=== PATIENT | male | born 1990 | race Caucasian/White ===

== ENCOUNTER 2019-10-26 01:59 | Emergency (ER) | payer SELFPAY ==
[2019-10-26 02:02] VITALS: BP 123/81; PULSE 75; RESP 16; TEMP 36.9; O2SAT 98; BMI 19.9
--- NOTE | 2019-10-26 02:35 | ED.VIS.GEN ---
History of Present Illness Chief Complaint: Fever Informant: Patient Onset: Days Context: Gradual Onset Timing: Continuous Narrative: Patient is a 29-year-old male with no significant past medical history presenting with concern for coronavirus infection. Patient states he has a coworker he will tested positive for coronavirus this week. He has had fever of 101 and was sent home from work yesterday. In addition he is having fatigue and generalized malaise. He states he is a chronic cough from smoking states the cough has not changed. Has been alternating Tylenol and DayQuil with normal relief of his symptoms. Patient presented with his roommate as they both work in the same place and had the same symptoms. Patient is, that he is had some issues with depression with denies any homicidal suicidal ideations. He is working with his insurance to find a counselor/psychologist. Past Medical History - Allergies and Home Meds Allergies/Adverse Reactions: Allergies Penicillins Allergy (Verified 10/26/19 02:02) Vomiting Primary Care Physician: [facility] [GROUP OF PHYSICIANS] - Past Medical History: None Surgical History: noncontributory Lives: Roommate Smoking Status: Current every day smoker Review of Systems General: Reports: Chills, Fever, Malaise. Denies: Sweats Eyes: Denies: Visual changes - bilaterally, Diplopia ENT: Denies: Rhinorrhea, Sore throat Cardiovascular: Denies: Chest pain, Palpitations Respiratory: Reports: Cough. Denies: Dyspnea, Sputum, Dyspnea on exertion Gastrointestinal: Denies: Abdominal pain, Nausea, Vomiting, Diarrhea, Melena, Hematochezia Genitourinary: Denies: Dysuria, Hematuria, Frequency Musculoskeletal: Denies: Back pain, Extremity Pain Skin: Denies: Rash, Wounds Neurological: Denies: Headache, Weakness, Numbness Physical Exam Vital Signs/Narrative: Vital Signs Temp Pulse Resp BP Pulse Ox 10/26/19 02:02 98.4 F 75 16 123/81 H 98 Inital Vital Signs reviewed: Yes General: Well nourished, Well developed, No Acute Distress Head: Normocephalic, Atraumatic Eyes: Perrl, EOMI ENT: Moist mucous membranes, No rhinorrhea, TM's clear. Negative for: Nasal congestion Neck: Supple, Nontender, No lymphadenopathy, No JVD Cardiovascular: Regular rate, Regular rhythm, No murmurs Respiratory: No distress, CTA bilaterally, Chest nontender Abdomen: Soft, Nontender, Nondistended, Normal bowel sounds Back: Nontender, Normal Inspection Extremities: Nontender, No edema Skin: Normal color, No rash Neurological: Alert, Oriented x3, Cranial nerves II-XII grossly intact, Normal Strength, Normal Sensation Psychological: Normal affect, Normal Mood Diagnostic/Tx/Re-eval - Medical Decision Making Evaluated for concern of coronavirus infection after exposure. He has some mild flulike symptoms including fever and fatigue. He is otherwise well-appearing. He is clear breath sounds. Nothing a chest x-ray is indicated. He has normal vital signs. He will be swabbed for COVID. He is given return precautions. He is given isolation precautions. And depression screening questions patient does report that he does have some depression but denies any homicidal suicidal ideations. Patient is given information for the counseling center. Patient is counseled on signs and symptoms requiring return to the emergency room. Patient verbalizes agreement and understand this plan. Patient discharged home in stable and improved condition. ED Disposition - Plan for ED Patient: Disposition: Home or Assisted Living Diagnosis: Fever with exposure to COVID-19 virus Instructions: ED Fever Control (Adult) Referrals: Counseling,Center [GROUP OF PHYSICIANS] - Additional Instructions: Alternate Tylenol and ibuprofen as needed for fever and symptom control.
[2019-10-26 03:48] VITALS: RESP 18
== END 2019-10-26 03:48 | disposition home or self-care (01) ==
LOC: ED 03:10
PROVIDERS: Emergency Provider Emergency Medicine
DX: R50.9 Fever, unspecified (principal); Z20.828 Contact with and (suspected) exposure to other viral communicable diseases; F17.200 Nicotine dependence, unspecified, uncomplicated
CPT/HCPCS: 87635; 94799; 99282; U0003

== ENCOUNTER 2019-12-01 03:33 | Emergency (ER) | payer OTHER, SELFPAY ==
[2019-12-01 03:33] VITALS: BP 126/78; PULSE 64; RESP 16; TEMP 36.4; O2SAT 100; BMI 17.6
--- NOTE | 2019-12-01 03:41 | ED.DCSUM_ITS ---
- ER Visit Summary Date of Service: 12/01/19 Chief Complaint: [Dental pain] History of Present Illness: The patient is a 29 M [presents to the emergency department complaint of dental pain for the last 3 days. Patient states that he has had trouble with his teeth off and on over the last 2 to 3 years. Patient states that he recently got insurance and knows that he needs to follow-up with a dentist. He denies any fever. He denies any dental trauma. Patient states he had to leave work because of the amount of pain that he was having. He has no medical history otherwise.] Physical Examination: [HEENT-PERRLA, EOMI. Cranial nerves II through XII grossly intact. TMs clear. Mucous membranes moist. No adenopathy. Dentition- patient has broken and carried left upper molar that is tender to palpation. There is no gingival erythema or abscess noted. No facial cellulitis noted. Patient also has diffuse poor dentition with multiple caries noted. Cardiovascular-regular rate and rhythm without murmur or ectopy Lungs-clear to auscultation, chest wall stable without crepitus or subcu emphysema Abdomen-normoactive bowel sounds, soft, nontender, no rebound or rigidity, no peritoneal signs. Extremities-intact ?4, normal range of motion, normal pulses, atraumatic] Test Results: [None indicated] Emergency Department Course and Treatment: Patient given dose of clindamycin p.o.] Treatment Plan: [Patient will be treated with clindamycin and a few [place] for pain. Patient given referral to dentist in the area.] Disposition: [Discharged home in stable condition] Impression: [Dental pain secondary to dental carry] This note was generated with [employer] dictation software. It may contain incorrect words, spelling, and punctuation that were not noted in review of the chart prior to signing ED Disposition - Plan for ED Patient: Referrals: Care Physician,No Primary [Primary Care Provider] -
--- NOTE | 2019-12-01 03:43 | DCINST.ED_ITS ---
ED Disposition - Plan for ED Patient: Instructions: ED Tooth Pain Prescriptions: Clindamycin HCl [Cleocin] 300 mg PO Q6H #40 cap Prescription Printed Hydrocodone Bitart/Apap 5-325 [[place] 5MG-325MG] 1 tab PO Q4H PRN PRN 2 Days #10 tab PRN Reason: Pain Prescription Printed Referrals: Care Physician,No Primary [Primary Care Provider] -
[2019-12-01] MEDS: Clindamycin HCl 150 MG Capsule 300 MG PO (03:49)
== END 2019-12-01 04:39 | disposition home or self-care (01) ==
PROVIDERS: Emergency Provider Emergency Medicine
DX: K02.9 Dental caries, unspecified (principal); Z72.0 Tobacco use
CPT/HCPCS: 99283

== ENCOUNTER 2019-12-19 22:25 | Emergency (ER) | payer OTHER, SELFPAY ==
[2019-12-19 22:26] VITALS: BP 128/84; PULSE 78; RESP 14; TEMP 36.6; O2SAT 100; BMI 17.6
--- NOTE | 2019-12-19 23:22 | ED.VIS.GEN ---
History of Present Illness Chief Complaint: Dental Informant: Patient Onset: Weeks Context: Gradual Onset Current Severity: Moderate Maximum Severity: Moderate Narrative: Patient presents to the ED with continued dental pain. He was seen here on November 30 and given a prescription for clindamycin as he does have a penicillin allergy. He states the medication made him nauseated he was only able to take about half the course. Because he works third shift he was not able to get in to see a dentist. He returned tonight secondary to continued dental pain and nausea. He is taking ibuprofen and Tylenol regularly. Past Medical History - Allergies and Home Meds Allergies/Adverse Reactions: Allergies Penicillins Allergy (Verified 12/19/19 22:26) Vomiting Primary Care Physician: Care Physician,No Primary [Primary Care Provider] - Prior records reviewed: Yes Surgical History: noncontributory Smoking Status: Current every day smoker Review of Systems General: Denies: Chills, Fever Eyes: Denies: Visual changes - bilaterally ENT: Denies: Bilateral ear pain Cardiovascular: Denies: Chest pain Respiratory: Denies: Dyspnea Gastrointestinal: Reports: Nausea Musculoskeletal: Denies: Swelling, Extremity Pain Skin: Denies: Rash Neurological: Denies: Headache Hematologic: Denies: Easy bruising, Easy bleeding Allergy: Denies: Uticaria Physical Exam Vital Signs/Narrative: Vital Signs Temp Pulse Resp BP Pulse Ox 12/19/19 22:26 97.8 F 78 14 128/84 H 100 Inital Vital Signs reviewed: Yes General: Well nourished, Well developed Head: Normocephalic ENT: Moist mucous membranes, - - Multiple dental caries noted. Left maxillary molars are decayed to the gumline with some gum erosion. Right mandibular second molar is decayed on the lateral surface. No facial edema or erythema noted. Posterior pharynx examination is normal. Patient is tolerating secretions well and has a strong voice. Cardiovascular: Regular rate, Regular rhythm Respiratory: No distress Abdomen: Soft, Nontender Skin: Normal color Neurological: Alert, Oriented x3 Psychological: Normal affect Diagnostic/Tx/Re-eval - Medical Decision Making Patient will be given a prescription for Zofran to help control his nausea. He will be given a new prescription for clindamycin as well as tramadol that he can use to take for pain before he goes to bed at night. He is given a new dental referral list. ED Disposition - Plan for ED Patient: Disposition: Home or Assisted Living Diagnosis: Odontalgia Instructions: ED Tooth Pain Prescriptions: Clindamycin [Cleocin] 300 mg PO 4X/DAY #80 capsule traMADol [Ultram] 50 mg PO Q4H PRN PRN 3 Days #20 tablet PRN Reason: Pain Ondansetron [Zofran Odt] 4 mg PO Q8H PRN PRN #20 tablet PRN Reason: Nausea Additional Instructions: Dental list provided.
[2019-12-19] MEDS: traMADol 50 MG Tablet PO (23:29)
[2019-12-19] MEDS: Ondansetron ODT 4 MG Tablet PO (23:29)
== END 2019-12-19 23:50 | disposition home or self-care (01) ==
LOC: ED 23:28
PROVIDERS: Emergency Provider Emergency Medicine
DX: K08.89 Other specified disorders of teeth and supporting structures (principal); U07.1 COVID-19; F17.200 Nicotine dependence, unspecified, uncomplicated
CPT/HCPCS: 87635; 99282; U0003

== ENCOUNTER 2020-02-18 09:43 | Emergency (ER) | payer SELFPAY ==
[2020-02-18 09:44] VITALS: BP 142/80; PULSE 86; RESP 15; TEMP 36.7; O2SAT 100; BMI 17.7
--- NOTE | 2020-02-18 09:56 | RAD_ITS ---
STUDY: X-RAY - RIGHT HAND REASON FOR EXAM: Male, 30 years old. Punched a wall last night -- pain to thumb and index finger TECHNIQUE: view(s) of the hand. COMPARISON: None. FINDINGS: Normal radiocarpal articulation. Normal distal radioulnar joint. Normal visualized carpal bones. Normal carpal articulations Normal carpometacarpal articulation of the thumb. Normal second through fifth carpometacarpal joints. Normal metacarpi. Normal metacarpophalangeal joint of the thumb. Normal interphalangeal joint of the thumb. Normal proximal and distal phalanges of the thumb. Normal metacarpophalangeal joints of the second through fifth fingers. Normal proximal and distal interphalangeal joints of the second through fifth fingers. Normal phalanges of the second through fifth fingers. The soft tissue structures are unremarkable. RAD/Hand Min 3 Views IMPRESSION: Normal x-ray examination of the hand. Electronically Signed: Lars Garber MD at 10:15 EST Tel , Service support ,
--- NOTE | 2020-02-18 09:56 | ED.DCSUM_ITS ---
History of Present Illness Chief Complaint: Upper Extremity Injury Informant: Patient Onset: Yesterday Maximum Severity: Mild Narrative: Patient is left-handed. He presents with right hand pain that occurred yesterday when he was angry punched a wall has persistent discomfort to the hand in a diffuse fashion and presents for evaluation, no prior history of injury to that extremity no other complaints unable to work today because of the hand pain Past Medical History - Allergies and Home Meds Allergies/Adverse Reactions: Allergies Penicillins Allergy (Verified 12/19/19 22:26) Vomiting Primary Care Physician: Care Physician,No Primary [Primary Care Provider] - Past Medical History: None Surgical History: noncontributory Smoking Status: Current every day smoker Review of Systems General: Denies: Chills, Fever, Sweats Eyes: Denies: Visual changes - bilaterally, Diplopia ENT: Denies: Rhinorrhea, Sore throat Cardiovascular: Denies: Chest pain, Palpitations Respiratory: Denies: Dyspnea, Cough, Dyspnea on exertion Gastrointestinal: Denies: Abdominal pain, Nausea, Vomiting, Diarrhea, Melena, Hematochezia Genitourinary: Denies: Dysuria, Hematuria, Frequency Musculoskeletal: Reports: Extremity Pain. Denies: Back pain Skin: Denies: Rash, Wounds Neurological: Denies: Headache, Weakness, Numbness Physical Exam Vital Signs/Narrative: Vital Signs Temp Pulse Resp BP Pulse Ox 02/18/20 09:44 98.0 F 86 15 142/80 H 100 General: Well nourished, Well developed, No Acute Distress Head: Normocephalic, Atraumatic Eyes: Perrl, EOMI ENT: Moist mucous membranes, No rhinorrhea Neck: Supple, Nontender Cardiovascular: Regular rate, Regular rhythm, No murmurs Respiratory: No distress, CTA bilaterally, Chest nontender Abdomen: Soft, Nontender, Nondistended, Normal bowel sounds Back: Nontender, Normal Inspection Extremities: Nontender, No edema, - - He has some abrasions to the knuckles of the right hand he has full range of motion of the digits he has some mild thumb discomfort no snuffbox, sensations intact skin is intact neurovascular function is all normal Skin: Normal color, No rash Neurological: Alert, Oriented x3, Cranial nerves II-XII grossly intact, Normal Strength, Normal Sensation Psychological: Normal affect, Normal Mood Diagnostic/Tx/Re-eval - Medical Decision Making At this time x-rays pain management Right hand x-ray multiple view to my review show no acute abnormalities soft tissue bones within normal range, radiology report concurs see that report, I explained the above the patient the concept of an occult injury he is comfo rtable with discharge home he needs a day off work [id number] pain management and to follow-up with on-call orthopedics if not improved Home stable Final impression right hand contusion ED Disposition - Plan for ED Patient: Diagnosis: Right hand contusion Instructions: ED Contusion, Upper Extremity Referrals: Care Physician,No Primary [Primary Care Provider] - Da Billy MD [STAFF PHYSICIAN] -
[2020-02-18] MEDS: Naproxen 500 MG Tablet PO (10:13)
[2020-02-18 11:07] VITALS: PULSE 74; O2SAT 99
== END 2020-02-18 11:08 | disposition home or self-care (01) ==
LOC: ED 10:39
PROVIDERS: Emergency Provider Emergency Medicine
DX: S60.221A Contusion of right hand, initial encounter (principal); F17.200 Nicotine dependence, unspecified, uncomplicated; W22.09XA Striking against other stationary object, initial encounter; Y93.89 Activity, other specified; Y92.89 Other specified places as the place of occurrence of the external cause; Y99.8 Other external cause status
CPT/HCPCS: 73130; 99283

== ENCOUNTER 2020-04-23 19:41 | Emergency (ER) | payer SELFPAY ==
[2020-04-23 19:42] VITALS: BP 119/74; PULSE 88; RESP 16; TEMP 36.3; O2SAT 99; BMI 18.2
--- NOTE | 2020-04-23 19:50 | ED.VIS.GEN ---
History of Present Illness Chief Complaint: Nausea/Vomiting Informant: Patient Onset: Days - Set of illness April 19 Context: Sudden Onset Timing: Continuous Quality: Nausea, vomiting, fever and chills Location: GI Current Severity: Mild Maximum Severity: Severe Worsened by: Nothing Relieved by: Nothing Associated Symptoms: Constitutional symptoms Narrative: She is a 30-year-old male with no sniffing past medical history presents to the emerged part because of illness that started on April 19. He reports nausea and vomiting. Fever with chills. He reports numerous episodes of vomiting with frequent bowel movements but not watery diarrhea. He denies blood in emesis or black or maroon-colored stool. He states he feels better. He needs a note to return to work. Patient does admit he is a heavy smoker and occasional late will have alcoholic beverages. He presently has mild headache. Eyes visual, ocular auditory symptoms. He denies upper respiratory symptoms. He denies contact with anyone ill or with Covid. He denies loss of taste or smell. Prior similar symptoms: No Recent Illness/Hospitalization: No - Past Medical History (1) No significant past medical history Status: Acute Past Medical History - Allergies and Home Meds Allergies/Adverse Reactions: Allergies Penicillins Allergy (Verified 12/19/19 22:26) Vomiting Primary Care Physician: Care Physician,No Primary [Primary Care Provider] - Prior records reviewed: No Past Medical History: None Surgical History: noncontributory Lives: Alone Smoking Status: Current every day smoker Alcohol: Occasional Drugs: None Review of Systems General: Reports: Chills, Fever, Malaise, Subjective. Denies: Sweats Eyes: Denies: Visual changes - bilaterally ENT: Denies: Rhinorrhea, Sore throat Cardiovascular: Denies: Chest pain, Palpitations Respiratory: Denies: Dyspnea, Cough, Dyspnea on exertion Gastrointestinal: Reports: Abdominal pain, Nausea, Vomiting. Denies: Diarrhea, Constipation, Melena, Hematochezia Genitourinary: Denies: Dysuria, Hematuria, Frequency Musculoskeletal: Denies: Myalgias, Arthralgias, Neck pain, Back pain, Swelling, Extremity Pain, -, - Neurological: Reports: Headache, Weakness. Denies: Parasthesia, Numbness Psych: Denies: Depression, Anxiety Endocrine: Denies: Polyuria, Polydipsia Physical Exam Vital Signs/Narrative: Vital Signs Temp Pulse Resp BP Pulse Ox 04/23/20 19:42 97.4 F L 88 16 119/74 99 Inital Vital Signs reviewed: Yes General: Well nourished, Well developed, No Acute Distress Head: Normocephalic, Atraumatic Eyes: Perrl, EOMI. Negative for: Pale conjunctiva ENT: Moist mucous membranes Cardiovascular: Regular rate, Regular rhythm Respiratory: No distress Abdomen: Soft Rectal: Deferred Skin: Normal color, No rash Neurological: Alert, Oriented x3, Cranial nerves II-XII grossly intact, Normal Strength, Normal Sensation, Normal Gait Psychological: Normal affect Diagnostic/Tx/Re-eval - Medical Decision Making Presents with viral infection with nausea, vomiting and increased bowel movements. He presents for note so he may return to work. Since patient is in no distress with normal vital signs and unremarkable exam he was given note to return to work. ED Disposition - Plan for ED Patient: Disposition: Home or Assisted Living Diagnosis: Nausea and vomiting in adult patient, Fever and chills Instructions: ED Vomiting and Diarrhea ... Referrals: Care Physician,No Primary [Primary Care Provider] - Surendra Do MD [STAFF PHYSICIAN] - As Needed
[2020-04-23 20:17] VITALS: PULSE 84; RESP 14; O2SAT 99
== END 2020-04-23 20:17 | disposition home or self-care (01) ==
LOC: ED 20:02
PROVIDERS: Emergency Provider Emergency Medicine
DX: R11.2 Nausea with vomiting, unspecified (principal); R50.9 Fever, unspecified; F17.200 Nicotine dependence, unspecified, uncomplicated
CPT/HCPCS: 99282

== ENCOUNTER 2022-04-16 15:58 | Emergency (ER) | payer OTHER, SELFPAY ==
[2022-04-16 15:59] VITALS: BP 129/96; PULSE 107; RESP 16; TEMP 36.4; O2SAT 98; BMI 17.9
--- NOTE | 2022-04-16 16:29 | ED.VIS.LOWEX ---
HPI History of Present Illness Chief Complaint: Lower Extremity Injury Narrative Narrative: 32-year-old male presenting with right fifth toe pain and third toe pain. There is erythema on knees which has developed. 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 He also states he picks at his toenails. He picks at his fingernails as well. Does not have any systemic signs or symptoms. No trauma that he knows of. No drainage. He states that his fifth toe is tender but his third toe is not. PFSH PFSH Home Medications clindamycin HCl 150 mg capsule 450 mg PO TID 7 days #63 caps 04/16/22 [Rx Last Taken Unknown] naproxen 500 mg tablet (Naprosyn) 500 mg PO BID PRN pain #20 tabs 04/16/22 [Rx Last Taken Unknown] Allergy/AdvReac Type Severity Reaction Status Date / Time Penicillins Allergy Vomiting Verified 12/19/19 22:26 Social History Smoking Status: Never smoker ROS ROS ED Constitutional Constitutional ED: Denies chills, fever(s) or sweats Eyes Eyes: Denies blurry vision or change in vision ENT ENT ED: Denies ear pain or sore throat Cardiovascular Cardiovascular: Denies chest pain, palpitations or racing heartbeat Respiratory/Chest Respiratory/Chest: Denies cough, dyspnea or sputum Gastrointestinal Gastrointestinal: Denies abdominal pain, constipation, diarrhea, nausea or vomiting Genitourinary Genitourinary ED: Denies dysuria, hematuria or urinary frequency Musculoskeletal Musculoskeletal: Denies arthralgias, myalgias or neck pain Integumentary Denies abscess, Abrasions or rash Neurologic Neurologic: Denies headache(s), paresthesias or weakness Psychiatric Psychiatric: Denies anxiety, depression, suicidal ideation or suicidal thoughts Endocrine Endocrinology: Denies polydipsia or polyuria EXAM Physical Exam Const Vital Signs: 04/16/22 15:59 Temperature 97.5 F L Temperature Source Temporal Pulse Rate 107 H Respiratory Rate 16 Blood Pressure 129/96 H Blood Pressure Mean 107 Pulse Ox 98 Oxygen Delivery Method Room Air Positive well nourished General Appearance ED: NAD HEENT Reports moist mucous membranes normocephalic Eyes PERRL Chest Wall inspection of chest normal and palpation of chest normal Resp normal respiratory effort and no retractions Cardio regular rate and regular rhythm GI non-tender Back/Spine no CVA tenderness Neuro oriented x3 and CN's II-XII intact bilaterally Sensorium / Orientation: alert Motor Exam: strength 5/5 throughout and general weakness Psych mental status grossly normal Skin Skin Narrative: Erythema and tenderness to the right fifth toe. The right third toe has some erythema but is not tender. No drainage or fluctuance. No deformity. Lesions: no lesions MDM MDM MDM Narrative Medical decision making narrative: Patient's presentation most consistent with cellulitis of the foot mostly on the right fifth toe but the third toe is also erythematous. There is only pain in the fifth toe. No fluctuance or deformity. I do not think he needs imaging. I will start him on antibiotics and give Naprosyn for pain. Also give podiatry follow-up. Patient was counseled to soak his foot is much as he can. Impression: 1. Right fifth toe cellulitis Discharge Plan Triage Chief Complaint: Lower Extremity Injury ED Provider: Johny Grover Dx/Rx/DC Orders Instructions: ED Cellulitis Prescriptions: New clindamycin HCl 150 mg capsule 450 mg PO TID 7 Days Qty: 63 0RF naproxen [Naprosyn] 500 mg tablet 500 mg PO BID PRN (Reason: pain) Qty: 20 0RF Primary Care Provider: Care Physician,No Primary Referrals: Ulysses Gentile DPM [Med Staff - Active Staff] - 2 Days for wound check Care Physician,No Primary [Primary Care Provider] - Disposition Disposition: Home, Self Care
[2022-04-16] MEDS: Clindamycin HCl 150 MG Capsule 450 MG PO (16:40)
[2022-04-16 16:44] VITALS: PULSE 97; RESP 16; O2SAT 99
== END 2022-04-16 16:44 | disposition home or self-care (01) ==
PROVIDERS: Emergency Provider Student in an Organized Health Care Education/Training Program; Visit Provider Student in an Organized Health Care Education/Training Program
DX: L03.031 Cellulitis of right toe (principal)
CPT/HCPCS: 99283

== ENCOUNTER 2022-04-24 20:27 | Emergency (ER) | payer OTHER, SELFPAY ==
[2022-04-24 20:28] VITALS: BP 120/95; PULSE 90; RESP 18; TEMP 36.2; BMI 17.4
[2022-04-24] MEDS: Ibuprofen 600 MG Tablet PO (21:29)
--- NOTE | 2022-04-24 21:34 | EX.ED.DYSGE1 ---
HPI History of Present Illness Chief Complaint: Cellulitis Narrative Narrative: Patient is a 32-year-old male presenting with recurrent/worsening right fifth toe pain. Patient was seen in the ER 9 days ago and diagnosed with cellulitis of his toe. He started on clindamycin. He states he took the entire course of antibiotics and finished it yesterday. He note notes his symptoms had pretty much resolved. He is to continue to do warm soaks. He states 2 days before he was seen initially in the ER the nail of his pinky toe fell off. 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 Today he developed worsening pain, redness and swelling of the same toe. He came in for further evaluation of this. Currently denies any drainage but notes he has had some intermittent drainage from his toe over the past few days. PFSH PFSH Home Medications clindamycin HCl 150 mg capsule 450 mg PO TID 7 days #63 caps 04/16/22 [Rx Last Taken Unknown] naproxen 500 mg tablet (Naprosyn) 500 mg PO BID PRN pain #20 tabs 04/16/22 [Rx Last Taken Unknown] cephalexin 500 mg capsule 500 mg PO Q6 7 days #28 CAPSULES 04/24/22 [Rx Last Taken Unknown] sulfamethoxazole 800 mg-trimethoprim 160 mg tablet (Bactrim DS) 1 tab PO BID 7 days #14 tabs 04/24/22 [Rx Last Taken Unknown] Allergy/AdvReac Type Severity Reaction Status Date / Time Penicillins Allergy Vomiting Verified 12/19/19 22:26 Social History Smoking Status: Never smoker ROS [facility] ED Constitutional Constitutional ED: Denies chills or fever(s) Gastrointestinal Gastrointestinal: Denies nausea or vomiting Musculoskeletal Musculoskeletal: Reports other Details: Right foot pain Integumentary Reports rash Neurologic Neurologic: Denies headache(s), paresthesias or weakness Psychiatric Psychiatric: Reports anxiety Hematologic/Lymphatic Hematologic/Lymphatic: Denies easy bleeding or easy bruising EXAM Physical Exam Const Vital Signs: 04/24/22 20:28 04/24/22 20:28 04/24/22 23:28 Temperature 97.2 F L 97.2 F L Temperature Source Temporal Temporal Pulse Rate 90 90 75 Respiratory Rate 18 18 16 Blood Pressure 120/95 H 120/95 H 118/90 H Blood Pressure Mean 103 103 Pulse Ox 97 Positive well nourished and well developed General Appearance ED: well developed and NAD HEENT Reports moist mucous membranes Eyes PERRL and EOMs intact bilaterally Neck supple Resp normal respiratory effort Cardio regular rate Extremity Extremity Narrative: Tenderness palpation localized to the left fifth toe. No bony tenderness. General Extremety ED: Negative for edema General Extremity: Negative for edema Neuro oriented x3 Sensorium / Orientation: alert Motor Exam: Negative for general weakness Psych mental status grossly normal Skin Skin Narrative: Erythema, warmth and tenderness of the distal phalanges of the right fifth toe. The nail is missing on the right fifth toe. No drainage appreciated. No associated lymphangitic streaking. MDM MDM MDM Narrative Medical decision making narrative: Patient evaluated for 1 day of worsening redness and pain of his right fifth toe.bedside ultrasound performed by myself to make sure there is not any associated fluid collection/abscess. This is negative for any hypoechoic fluid collection. Patient was previously treated with clindamycin. I will switch him to Bactrim and Keflex given first dose in the ER. Patient is also given a dose of Motrin 600 mg in the ER. He is given a new referral to podiatry. I do not think imaging is indicated there is no sign or symptom consistent with a foreign body/trauma. Possible could be irritated from him working on his feet all day and he is counseled to use a protective cushion for the toe. He verbalizes agreement understand this plan. Discharged home in stable condition. Discharge Plan Triage Chief Complaint: Cellulitis ED Provider: Selena Love Dx/Rx/DC Orders Clinical Impression: Cellulitis of fifth toe of right foot Instructions: ED Cellulitis Prescriptions: New sulfamethoxazole-trimethoprim [Bactrim DS] 800-160 mg tablet 1 tab PO BID 7 Days Qty: 14 0RF cephalexin 500 mg capsule 500 mg PO Q6 7 Days Qty: 28 0RF No Action clindamycin HCl 150 mg capsule 450 mg PO TID 7 Days Qty: 63 0RF naproxen [Naprosyn] 500 mg tablet 500 mg PO BID PRN (Reason: pain) Qty: 20 0RF Primary Care Provider: Care Physician,No Primary Referrals: Jayden Juarez DPM [Med Staff - Active Staff] - As soon as possible Care Physician,No Primary [Primary Care Provider] - Disposition Disposition: Home, Self Care Discharge Date/Time: 04/24/22 23:29
[2022-04-24] MEDS: Smz/Tmp Ds Tablet 1 TABLET PO (23:25)
[2022-04-24] MEDS: Cephalexin 250 MG Capsule 500 MG PO (23:25)
[2022-04-24 23:28] VITALS: BP 118/90; PULSE 75; RESP 16; O2SAT 97
== END 2022-04-24 23:29 | disposition home or self-care (01) ==
PROVIDERS: Emergency Provider Emergency Medicine; Visit Provider Emergency Medicine
DX: L03.031 Cellulitis of right toe (principal)
CPT/HCPCS: 99283

== ENCOUNTER 2022-09-19 18:12 | Emergency (ER) | payer OTHER, SELFPAY ==
[2022-09-19 18:13] VITALS: BP 126/90; PULSE 100; RESP 15; TEMP 36.8; O2SAT 99; BMI 19.3
--- NOTE | 2022-09-19 18:18 | EDS_ITS ---
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 He states yesterday he did this the entire day. He states he puts wings in a bucket with spices. He then grabbed the handle and shakes and rolls it. He states his hand is up against the bucket when he shakes it. He has built calluses on the back of his hands because of this. He is left hand his left hand. He states all his knuckles in both hands but more on the left are sore today. This morning they seem swollen but that is gone down. No acute trauma. No fevers or chills. No recent infections. It is not one joint that is sore. He has no history of rheumatoid arthritis. PFSH PFSH Home Medications clindamycin HCl 150 mg capsule 450 mg (3 x 150 mg) PO TID 7 days #63 caps 04/16/22 [Rx Last Taken Unknown] naproxen 500 mg tablet (Naprosyn) 500 mg PO BID PRN pain #20 tabs 04/16/22 [Rx Last Taken Unknown] cephalexin 500 mg capsule 500 mg PO Q6 7 days #28 CAPSULES 04/24/22 [Rx Last Taken Unknown] sulfamethoxazole 800 mg-trimethoprim 160 mg tablet (Bactrim DS) 1 tab PO BID 7 days #14 tabs 04/24/22 [Rx Last Taken Unknown] naproxen 500 mg tablet 500 mg PO BID #20 tabs 09/19/22 [Rx Last Taken Unknown] Allergy/AdvReac Type Severity Reaction Status Date / Time Penicillins Allergy Vomiting Verified 09/19/22 18:16 Social History Smoking Status: Never smoker ROS ROS ED Constitutional Constitutional ED: Denies chills or fever(s) Cardiovascular Cardiovascular: Denies chest pain or palpitations Respiratory/Chest Respiratory/Chest: Denies cough Gastrointestinal Gastrointestinal: Denies nausea or vomiting Musculoskeletal Musculoskeletal: Reports other Details: See history of present illness. Integumentary Reports other Details: Patient has built some chronic calluses but no acute ra sh. ; Denies rash Neurologic Neurologic: Denies paresthesias or weakness Hematologic/Lymphatic Hematologic/Lymphatic: Denies easy bleeding or easy bruising EXAM Physical Exam Narrative Exam Narrative: Patient is awake alert no acute distress. HEENT shows no trauma. He has some poor dentition but no sign of acute infection. Heart is regular. Lungs are clear. Extremities show calluses on the dorsum of his hand but much more on the left. He states these are chronic from his work. There are no focal joints that are swollen. None of them are red. None of them are hot. I can move them passively. But if he squeezes his hand into a fist type motion he has just aching and soreness everywhere. Const Vital Signs: 09/19/22 18:13 Temperature 98.3 F Temperature Source Temporal Pulse Rate 100 Respiratory Rate 15 Blood Pressure 126/90 H Blood Pressure Mean 102 Pulse Ox 99 Oxygen Delivery Method Room Air MDM MDM MDM Narrative Medical decision making narrative: I explained that this is really a repetitive motion type injury. Because he was doing this all day long yesterday really push this over the edge. He admits he has soreness as frequently but this was just worse than normal and work sent him in here for evaluation. I discussed the option of doing labs but I do not see any indication. We also agreed that there is no indication for acute x-ray. He has no acute traumatic injury. I think he needs to back off on this activity this aggravating it. I recommended ice. We will use nonsteroidals. He will follow-up with primary physician. Discharge Plan Triage Chief Complaint: Upper Extremity Injury ED Provider: Ottoniel Girard Dx/Rx/DC Orders Clinical Impression: Overuse syndrome of hand, Bilateral hand pain Instructions: ED Hand Sprain Prescriptions: New naproxen 500 mg tablet 500 mg PO BID Qty: 20 0RF No Action clindamycin HCl 150 mg capsule 450 mg PO TID 7 Days Qty: 63 0RF naproxen [Naprosyn] 500 mg tablet 500 mg PO BID PRN (Reason: pain) Qty: 20 0RF sulfamethoxazole-trimethoprim [Bactrim DS] 800-160 mg tablet 1 tab PO BID 7 Days Qty: 14 0RF cephalexin 500 mg capsule 500 mg PO Q6 7 Days Qty: 28 0RF Stand Alone Forms: ED Work / School Excuse Primary Care Provider: Care Physician,No Primary Referrals: Marcelino Redmond MD [Med Staff - Meteorology Teacher] - 3-5 Days if not improving Care Physician,No Primary [Primary Care Provider] - Disposition Disposition: Home, Self Care
== END 2022-09-19 19:00 | disposition home or self-care (01) ==
PROVIDERS: Emergency Provider Emergency Medicine; Visit Provider Emergency Medicine
DX: M70.941 Unspecified soft tissue disorder related to use, overuse and pressure, right hand (principal); M70.942 Unspecified soft tissue disorder related to use, overuse and pressure, left hand
CPT/HCPCS: 99282

== ENCOUNTER 2023-01-05 20:06 | Emergency (ER) | payer OTHER, SELFPAY ==
[2023-01-05 20:07] VITALS: BP 127/77; PULSE 108; RESP 18; TEMP 36; O2SAT 100; BMI 18.6
--- NOTE | 2023-01-05 20:48 | ED.VIS.GI ---
HPI HPI - GI History of Present Illness Chief Complaint: Nausea/Vomiting Informant: patient Narrative Narrative: Patient with nausea, vomiting, diarrhea for the past 2 days, he had a period of time where things seem to be improving initially, but worse again today at work. More vomiting than diarrhea. Some epigastric discomfort that started later, seems to be a little better after vomiting, not colicky no radiation into the back or shoulders. Healthy no history of any abdominal surgeries or other medical issues. No recent travel out of the area. 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 No known sick contacts. No fevers or chills. No chest symptoms. Urinating normally. No blood in his emesis or diarrhea. No melena. PFSH PFSH Medical History no medical history no medical history Home Medications ondansetron 4 mg disintegrating tablet 8 mg (2 x 4 mg) PO Q8H PRN PRN Nausea #20 tabs 01/05/23 [Rx Last Taken Unknown] Allergy/AdvReac Type Severity Reaction Status Date / Time Penicillins AdvReac Vomiting Verified 01/05/23 20:07 Family History no significant family his Surgical History no surgical history Social History Smoking Status: Current every day smoker tobacco type: cigarettes ROS ROS ED Constitutional Constitutional ED: Denies chills or fever(s) Eyes Eyes: Denies change in vision or diplopia ENT ENT ED: Denies rhinorrhea or sore throat Cardiovascular Cardiovascular: Denies chest pain or palpitations Respiratory/Chest Respiratory/Chest: Denies cough or dyspnea Gastrointestinal Gastrointestinal: Reports abdominal pain, diarrhea, nausea and vomiting Genitourinary Genitourinary ED: Denies dysuria or hematuria Musculoskeletal Musculoskeletal: Denies back pain or neck pain Integumentary Denies abscess or rash Neurologic Neurologic: Denies headache(s), paresthesias or weakness Psychiatric Psychiatric: Denies anxiety or suicidal thoughts EXAM Physical Exam Const Vital Signs: 01/05/23 20:07 Temperature 96.8 F L Temperature Source Temporal Pulse Rate 108 H Respiratory Rate 18 Blood Pressure 127/77 H Blood Pressure Mean 93 Pulse Ox 100 Positive well nourished and well developed General Appearance ED: well developed and NAD HEENT Reports moist mucous membranes normocephalic and atraumatic Eyes PERRL and EOMs intact bilaterally Neck full ROM and supple Resp normal respiratory effort and clear to auscultation bilaterally Cardio regular rate, regular rhythm and no murmurs GI non-distended GI Narrative: Epigastric tenderness mild no guarding or rebound, otherwise benign abdomen. Auscultation: normoactive bowel sounds Palpation: soft Back/Spine no CVA tenderness General Back: other FROM Extremity normal to inspection General Extremety ED: Negative for edema, pulses abnormal or tenderness General Extremity: Negative for edema or pulses abnormal Neuro oriented x3, CN's II-XII intact bilaterally and no sensory deficits noted Sensorium / Orientation: awake and alert Motor Exam: strength 5/5 throughout Skin no rashes or lesions noted and no wounds MDM MDM MDM Narrative Medical decision making narrative: Labs were obtained and reviewed, he does have very slight elevations of his AST and ALT. The rest of his liver enzymes and lipase are normal. Patient does not have risk factors for hepatitis has not been out of the region recently. I did bedside ultrasound after we treated his symptoms with IV fluids, Zofran, Toradol, solution of his symptoms and the ultrasound on my interpretation of his gallbladder shows no gallstones or signs of acute cholecystitis or obvious. Given work note, prescription for Zofran, he is tolerating oral fluids and feeling much better and stable for discharge home with what is hopefully viral gastroenteritis, certainly that is in the differential, he does not have a significant leukocytosis here to suggest this is ascending cholangitis is also in the differential but thought to be less likely, in addition to acalculus cholecystitis. When discussing all this with the patient, he states he drinks a lot of alcohol, and that is probably the reason his liver enzymes are slightly elevated. We discussed that. Patient has no PCP so referred to the next doctor on the unassigned list Dr. Arita. Lab Data Attestation: I reviewed the patient's lab results. Labs: Laboratory Results - last 24 hr 01/05/23 20:24 WBC 7.8 RBC 5.43 Hgb 16.6 H Hct 50.5 MCV 93.0 MCH 30.6 MCHC 32.9 RDW Std Deviation 49.1 H RDW Coeff of Jeffy 14.4 Plt Count 394 MPV 9.6 Immature Gran % (Auto) 0.500 Neut % (Auto) 61.1 Lymph % (Auto) 24.2 Fajardo % (Auto) 11.8 H Eos % (Auto) 1.8 Baso % (Auto) 0.6 Absolute Neuts (auto) 4.8 Absolute Lymphs (auto) 1.89 Nucleated RBC % 0 Sodium 137 Potassium 3.7 Chloride 102 Carbon Dioxide 29.0 Anion Gap 6 BUN 11 Creatinine 0.96 Estim Creat Clear Calc 87.84 Est GFR (MDRD) Af Amer 117 Est GFR (MDRD) Non-Af 97 BUN/Creatinine Ratio 11.5 Glucose 132 H Calcium 9.0 Total Bilirubin 0.90 AST 113 H ALT 185 H Alkaline Phosphatase 93 Total Protein 7.6 Albumin 3.9 Globulin 3.7 Albumin/Globulin Ratio 1.1 Lipase 28 Discharge Plan Triage Chief Complaint: Nausea/Vomiting ED Provider: Raghav Jones Dx/Rx/DC Orders Clinical Impression: Gastroenteritis Instructions: ED Gastroenteritis, Viral (Adult) Prescriptions: New ondansetron [ondansetron] 4 mg tablet,disintegrating 8 mg PO Q8H PRN PRN (Reason: Nausea) Qty: 20 0RF Primary Care Provider: Care Physician,No Primary Referrals: Fiona Arita MD [Med Staff - Funeral Home Assistant] - 3-5 Days if not improving (call for appt) Care Physician,No Primary [Primary Care Provider] - Disposition Disposition: Home, Self Care
[2023-01-05 21:00] LABS: Absolute Lymphocyte Count 1.89 X10^3/uL (0.83-4.51); Absolute Neutrophil Count 4.8 X10^3/uL (2.0-7.7); Basophil# 0.05 X10^3/uL; Basophil% 0.6 % (0-1); Eosinophil# 0.14 X10^3/uL; Eosinophils% 1.8 % (0-5); Hematocrit 50.5 % (40-54); Hemoglobin 16.6 g/dL (13.0-16.5); Lymphocyte # 1.89 X10^3/ul (0.83-4.51); Lymphocyte % 24.2 % (19-41); Mean Corp Hgb Conc 32.9 g/dL (32-36); Mean Corpuscular Hgb 30.6 pg (27.0-32.0); Mean Platelet Vol. 9.6 fl (6.2-12.0); Monocyte# 0.92 X10^3/uL; Monocyte% 11.8 % (0-10); NRBC Flagged by Analyzer 0 % (0-5); Neutrophil # 4.78 X10^3/uL (2.7-7.7); Neutrophil % 61.1 % (47-70); Platelet Count 394 K/mm3 (150-450); RBC Distribution Width CV 14.4 % (11.6-14.6); RBC Distribution Width SD 49.1 fl (35.1-43.9); Red Blood Count 5.43 M/mm3 (4.6-6.2); White Blood Count 7.8 K/mm3 (4.4-11.0)
[2023-01-05] MEDS: Ondansetron 4 MG/2 ML Vial IV (21:01)
[2023-01-05] MEDS: 0.9% Normal Saline (1000mL) 1,000 ML 1000 ML IV (21:01)
[2023-01-05] MEDS: Ketorolac 15 MG/ML Vial IV (21:02)
[2023-01-05 21:16] LABS: ALB/GLOB Ratio 1.1 RATIO (0.9-2.4); AST(SGOT) 113 U/L (15-37); Alanine Aminotransfer ALT/SGPT 185 U/L (16-61); Albumin, Serum 3.9 g/dL (3.2-5.0); Alkaline Phosphatase 93 U/L (45-117); Anion Gap 6 (5-15); BUN 11 mg/dL (7-18); BUN/Creat Ratio 11.5 RATIO (10-20); Chloride 102 mmol/L (98-107); Creatinine, Serum 0.96 mg/dL (0.70-1.30); EST Glomerular Filtration Rate 97 mL/min (>60); Est Glom Filt Rate - Afr Amer 117 mL/min (>60); Estimated Creatinine Clearance 87.84 ml/min; Globulin 3.7 g/dL (2.2-4.2); Glucose 132 mg/dL (74-106); Lipase 28 U/L (13-75); Potassium 3.7 mmol/L (3.5-5.1); Protein, Total 7.6 g/dL (6.4-8.2); Sodium Level 137 mmol/L (136-145)
[2023-01-05 22:51] VITALS: RESP 16
== END 2023-01-05 22:52 | disposition home or self-care (01) ==
PROVIDERS: Emergency Provider Emergency Medicine; Visit Provider Emergency Medicine
DX: K52.9 Noninfective gastroenteritis and colitis, unspecified (principal); F17.210 Nicotine dependence, cigarettes, uncomplicated
CPT/HCPCS: 80053; 83690; 85025; 96361; 96374; 96375; 99283; J7030; A4216; J2405